=== PATIENT | female | born 1960 | race Caucasian/White ===

== ENCOUNTER 2018-03-19 11:35 | Emergency (ER) | payer OTHER ==
[~2018-03-19] VITALS: Ht 167.6 cm; Wt 86.2 kg
[2018-03-19] MEDS ORDERED: NORCO 5-325 TA1 EAC1 PO (12:54)
[2018-03-19 13:14] VITALS: BP 136/72
== END 2018-03-19 13:17 | disposition home or self-care (01) ==
LOC: M.ERS 11:35
DX: S89.81XA Other specified injuries of right lower leg, initial encounter (principal); F17.210 Nicotine dependence, cigarettes, uncomplicated; W11.XXXA Fall on and from ladder, initial encounter; Y93.89 Activity, other specified; Y92.89 Other specified places as the place of occurrence of the external cause; Y99.8 Other external cause status

== ENCOUNTER 2018-04-25 04:09 | Emergency (ER) | payer OTHER ==
[~2018-04-25] VITALS: Ht 154.9 cm; Wt 81.7 kg
[~2018-04-25 04:09] MED LIST: NORCO 5-325 TA1 EAC1 PO
[2018-04-25] MEDS ORDERED: HYDROXYZINE HCL25 M1 PO (04:31)
[2018-04-25] MEDS ORDERED: PREDNISONE50 MG PO (04:31)
[2018-04-25 04:51] VITALS: BP 133/88
== END 2018-04-25 04:52 | disposition home or self-care (01) ==
LOC: M.ERS 04:09
DX: L25.9 Unspecified contact dermatitis, unspecified cause (principal); F17.210 Nicotine dependence, cigarettes, uncomplicated; Z98.890 Other specified postprocedural states

== ENCOUNTER 2018-04-29 16:18 | Emergency (ER) | payer OTHER ==
[~2018-04-29] VITALS: Ht 154.9 cm; Wt 81.7 kg
[~2018-04-29 16:18] MED LIST changes: +HYDROXYZINE HCL25 M1 PO; +PREDNISONE50 MG PO
[2018-04-29] MEDS ORDERED: TRIAMCINOLONE A80 G2 TOP (17:20)
[2018-04-29] MEDS ORDERED: PREDNISONE 10 M10 MG PO (17:20)
[2018-04-29] MEDS ORDERED: HYDROXYZINE HCL25 M2 PO (17:20)
[2018-04-29 17:48] VITALS: BP 147/92
== END 2018-04-29 17:50 | disposition home or self-care (01) ==
LOC: M.ERS 16:18
DX: L25.9 Unspecified contact dermatitis, unspecified cause (principal); F17.210 Nicotine dependence, cigarettes, uncomplicated; Z98.890 Other specified postprocedural states

== ENCOUNTER 2018-12-18 17:32 | Emergency (ER) | payer OTHER ==
[~2018-12-18] VITALS: Ht 154.9 cm; Wt 84.8 kg
[~2018-12-18 17:32] MED LIST changes: +HYDROXYZINE HCL25 M2 PO; +PREDNISONE 10 M10 MG PO; +TRIAMCINOLONE A80 G2 TOP
[2018-12-18 18:49] VITALS: BP 132/88
== END 2018-12-18 18:50 | disposition home or self-care (01) ==
LOC: M.ERS 17:32
DX: S00.83XA Contusion of other part of head, initial encounter (principal); M25.511 Pain in right shoulder; F17.210 Nicotine dependence, cigarettes, uncomplicated; Z98.890 Other specified postprocedural states; Y04.2XXA Assault by strike against or bumped into by another person, initial encounter; Y92.59 Other trade areas as the place of occurrence of the external cause; Y99.0 Civilian activity done for income or pay; Y99.8 Other external cause status

== ENCOUNTER 2019-05-12 13:47 | Emergency (ER) | payer OTHER ==
[~2019-05-12] VITALS: Ht 154.9 cm; Wt 75.8 kg
[2019-05-12 13:54] VITALS: BP 137/96
[2019-05-12] MEDS ORDERED: AMOXICILLIN 50500 MG PO (14:35)
[2019-05-12] MEDS ORDERED: MEDROLDOSEPACK PO (14:35)
== END 2019-05-12 14:46 | disposition home or self-care (01) ==
LOC: M.ERS 13:47
DX: J30.9 Allergic rhinitis, unspecified (principal); F17.210 Nicotine dependence, cigarettes, uncomplicated; Z98.890 Other specified postprocedural states